=== PATIENT | female | born 1975 ===

== ENCOUNTER 2017-02-25 08:10 | Day surgery (SDC) | payer OTHER ==
[~2017-02-25] VITALS: Ht 154.9 cm; Wt 75.1 kg
[~2017-02-25 08:10] MED LIST: COLESTID 1GM1 G PO; IMODIUM AD1 MG/5 ML PO; SYMAX DUOTAB0.375 MG PO; ZOLOFT 100MG100 MG PO
[2017-02-25 08:32] VITALS: BP 135/91; PULSE 93; TEMP 98.3
[2017-02-25] MEDS ORDERED: KLONOPIN 0.5MG0.5 MG PO (08:45)
[2017-02-25 10:05] VITALS: BP 125/83; PULSE 96; TEMP 97.7
[2017-02-25 10:20] VITALS: BP 112/78; PULSE 76
[2017-02-25 10:36] VITALS: BP 116/76; PULSE 96
[2017-02-25 10:50] VITALS: BP 115/70; PULSE 95
[2017-02-25 12:53] VITALS: BP 120/78; PULSE 74
== END 2017-02-25 11:05 | disposition home or self-care (01) ==
LOC: SDCO 08:10
DX: K52.89 Other specified noninfective gastroenteritis and colitis (principal); F32.9 Major depressive disorder, single episode, unspecified; K25.9 Gastric ulcer, unspecified as acute or chronic, without hemorrhage or perforation; R19.7 Diarrhea, unspecified; Z90.49 Acquired absence of other specified parts of digestive tract
CPT/HCPCS: OP; J2250; J2405; J3010; J7030